=== PATIENT | male | born 1960 | race Caucasian/White ===

== ENCOUNTER 2021-02-25 22:42 | Emergency (ER) | payer MEDICAID, OTHER ==
[~2021-02-25] VITALS: Ht 180.3 cm; Wt 104.3 kg
[2021-02-25] MEDS ORDERED: HYDROCODONE/APAP 5/325MG TABLET PO ONE (23:00)
[2021-02-25] MEDS ORDERED: HYDROCODONE/APAP 5/325MG TABLET ONE (23:04)
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
[2021-02-26] MEDS ORDERED: HYDR-3972 PO (00:29)
--- NOTE | 2021-02-26 00:36 | NUR ---
Patient discharged to home in stable condition. Written and verbal after care instructions given. Patient verbalizes understanding of instruction.
[2021-02-26 00:37] VITALS: BP 134/98
== END 2021-02-26 01:26 | disposition home or self-care (01) ==
LOC: ER 22:44
DX: S82.64XA Nondisplaced fracture of lateral malleolus of right fibula, initial encounter for closed fracture (principal); S01.81XA Laceration without foreign body of other part of head, initial encounter; S63.591A Other specified sprain of right wrist, initial encounter; I10 Essential (primary) hypertension; E11.9 Type 2 diabetes mellitus without complications; Z60.2 Problems related to living alone; Y04.0XXA Assault by unarmed brawl or fight, initial encounter; Y93.89 Activity, other specified; Y92.89 Other specified places as the place of occurrence of the external cause; Y99.8 Other external cause status
CPT/HCPCS: 12011; 29515; 70450; 70486; 72125; 73110; 73610; 99284; A6403